=== PATIENT | female | born 2000 | race Two or more races ===

== ENCOUNTER 2025-03-25 10:17 | Day surgery (SDC) | payer OTHER ==
[2025-03-25] MEDS ORDERED: Acetaminophen 500 MG TAB ONE (10:30)
[2025-03-25] MEDS: Acetaminophen 500 MG TAB PO SCH (10:32)
[2025-03-25 10:51] VITALS: BP 93/54; TEMP 98.3
[2025-03-25] MEDS: Iron Sucrose Complex 500 MG in Sodium Chloride 0.9% 250 ML 250 ML IVPB SCH (11:14)
[2025-03-25] MEDS ORDERED: FLU (Fluarix Triv) 25-26 (6MOS UP)/PF 45 MCG/0.5 ML Syringe IM ONE (14:00)
== END 2025-03-25 15:54 | disposition home or self-care (01) ==
LOC: ONC/OP 10:17
PROVIDERS: ATTEND Family Medicine
DX: O99.019 Anemia complicating pregnancy, unspecified trimester (principal); Z3A.00 Weeks of gestation of pregnancy not specified
CPT/HCPCS: 96365; 96366; J1756; J7050

== ENCOUNTER → 2025-03-25 | Emergency (ER) | payer OTHER | LOC: ERS 16:51 | DX: Z53.21 Procedure and treatment not carried out due to patient leaving prior to being seen by health care provider (principal) ==